=== PATIENT | female | born 1975 | race Caucasian/White ===

== ENCOUNTER 2018-11-26 10:26 | Emergency (ER) | payer OTHER ==
[2018-11-26] MEDS ORDERED: SODIUM CHLORIDE 0.9% 1,000 ML IV STA (10:40)
[2018-11-26] MEDS ORDERED: HYOSCYAMINE SL 0.125 MG TABLET SL STA (11:17)
--- NOTE | 2018-11-26 11:21 | ED Physician Documentation ---
History of Present Illness - Stated complaint Stated Complaint: ABD PX/DIARRHEA - Chief complaint Chief Complaint: Abd Pain - History obtained from History obtained from: Patient - History of Present Illness Timing: Yesterday Pain level max: 9 Pain level now: 7 - Additonal information Additional information: 43 year old female states nausea yesterday, no vomiting. Diarrhea, lower abd pain and BRBPR. Nothing makes it better or worse. No travel, no abx. family has had nausea. Review of Systems Constitutional: denies: Fever, Chills Cardiac: denies: Chest pain / pressure Respiratory: denies: Cough GI: reports: Nausea : denies: Now EGA Skin: denies: Rash PD PAST MEDICAL HISTORY - Past Medical History Past Medical History: No - Present Medications Home Medications: Ambulatory Orders Medication Instructions Recorded Confirmed DULoxetine [Cymbalta] mg PO DAILY 11/26/18 Hydrocodone/Acetaminophen 1 - 2 each PO Q6H PRN #10 tablet 11/26/18 [Hydrocodon-Acetaminophen 5-325] Hyoscyamine Sulfate [Levsin-Sl] 0.125 mg SL Q6H PRN #14 tab.subl 11/26/18 Ondansetron Odt [Zofran] 4 mg TL Q6H PRN #10 tablet 11/26/18 Pregabalin [Lyrica] mg PO 11/26/18 busPIRone [Buspar] mg PO BID 11/26/18 - Allergies Allergies/Adverse Reactions: Allergies Allergy/AdvReac Type Severity Reaction Status Date / Time latex Allergy Hives Verified 11/26/18 10:40 PD ED PE NORMAL - Vitals Vital signs reviewed: Yes - General General: Alert and oriented X 3, No acute distress, Well developed/nourished - HEENT HEENT: Moist mucous membranes - Neck Neck: Supple, no meningeal sign - Cardiac Cardiac: RRR, Strong equal pulses - Respiratory Respiratory: No respiratory distress, Clear bilaterally - Abdomen Abdomen: Soft, Non distended, Other (TTP suprapubic and LLQ. no peritoneal signs. ) - Back Back: No CVA TTP, No spinal TTP - Derm Derm: Warm and dry - Extremities Extremities: No edema - Neuro Neuro: Alert and oriented X 3 - Psych Psych: Normal mood, Normal affect Results - Vitals Vitals: Vital Signs - 24 hr 11/26/18 11/26/18 10:38 13:34 Temperature 36.7 C Heart Rate 71 59 L Respiratory 18 16 Rate Blood Pressure 110/74 116/71 O2 Saturation 99 100 Oxygen O2 Source Room air - Labs Labs: Laboratory Tests 11/26/18 11/26/18 11/26/18 11:35 11:35 12:30 WBC 11.4 H RBC 4.71 Hgb 14.6 Hct 45.0 MCV 95.5 MCH 31.0 MCHC 32.4 RDW 12.3 Plt Count 301 MPV 9.9 Neut # (Auto) 9.6 H Lymph # (Auto) 1.0 L Brown # (Auto) 0.7 Eos # (Auto) 0.1 Baso # (Auto) 0.0 Absolute Nucleated RBC 0.00 Nucleated RBC % 0.0 Sodium 137 Potassium 4.4 Chloride 102 Carbon Dioxide 27 Anion Gap 8.0 BUN 13 Creatinine 0.8 Estimated GFR (MDRD) 79 L Glucose 99 Calcium 8.9 Total Bilirubin 0.7 AST 20 ALT 17 Alkaline Phosphatase 73 Total Protein 7.1 Albumin 3.9 Globulin 3.2 Albumin/Globulin Ratio 1.2 Lipase 32 Urine Color YELLOW Urine Clarity CLEAR Urine pH 6.5 Ur Specific Coin <=1.005 Urine Protein NEGATIVE Urine Glucose (UA) NEGATIVE Urine Ketones NEGATIVE Urine Occult Blood NEGATIVE Urine Nitrite NEGATIVE Urine Bilirubin NEGATIVE Urine Urobilinogen 0.2 (NORMAL) Ur Leukocyte Esterase NEGATIVE Ur Microscopic Review NOT INDICATED Urine Culture Comments NOT INDICATED - Rads (name of study) CT abd/pelvis Radiology: Prelim report reviewed, EMP read contemporaneously, See rad report (1. Mild thickening and mucosal enhancement of the descending colon, sigmoid colon and rectum which can be seen with inflammatory/infectious colitis. Detail limited due to lack of distention. No significant pericolonic fluid collections. No bowel obstruction. 2. Appendix not visualized. No pericecal inflammatory changes. 3. Postsurgical changes involving the stomach. Status post cholecystectomy. 4. 2.2 cm posterior right hepatic lobe mass, indeterminate, although possibly a hemangioma. Confirmation recommended with dedicated MRI of the liver. 5. Left adnexal low-attenuation lesions possibly cysts. Nonemergent follow-up pelvic ultrasound recommended. ) PD MEDICAL DECISION MAKING - ED course Complexity details: reviewed results, re-evaluated patient, considered differential, d/w patient ED course: Patient is well-appearing, nontoxic. Afebrile. Reviewed all findings of CT scan and need for follow-up with patient. Tolerating p.o. without difficulty. No evidence of diverticulitis. Likely viral gastroenteritis complicated by bleeding. Hemoglobin is normal. Vitals are stable. We will follow-up closely with her doctor for further care. Patient counseled regarding signs and symptoms for which I believe and urgent re-evaluation would be necessary. Patient with good understanding of and agreement to plan and is comfortable going home at this time This document was made in part using voice recognition software. While efforts are made to proofread this document, sound alike and grammatical errors may occur. Departure - Departure Disposition: Home, Self Care Clinical Impression: Viral gastroenteritis Condition: Good Instructions: ED Gastroenteritis Viral Follow-Up: your,doctor in 1 week [Other] [facility] [Provider Group] [facility] [Provider Group] Prescriptions: Hydrocodone/Acetaminophen [Hydrocodon-Acetaminophen 5-325] 1 - 2 each PO Q6H PRN #10 tablet PRN Reason: pain Hyoscyamine Sulfate [Levsin-Sl] 0.125 mg SL Q6H PRN #14 tab.subl PRN Reason: Nausea / Vomiting Ondansetron Odt [Zofran] 4 mg TL Q6H PRN #10 tablet PRN Reason: Nausea / Vomiting Comments: Return if you worsen. Drink plenty of fluids and rest. This should improve over the next [address] scan: 1. Mild thickening and mucosal enhancement of the descending colon, sigmoid colon and rectum which can be seen with inflammatory/infectious colitis. Detail limited due to lack of distention. No significant pericolonic fluid collections. No bowel obstruction. 2. Appendix not visualized. No pericecal inflammatory mack nges. 3. Postsurgical changes involving the stomach. Status post cholecystectomy. 4. 2.2 cm posterior right hepatic lobe mass, indeterminate, although possibly a hemangioma. Confirmation recommended with dedicated MRI of the liver. 5. Left adnexal low-attenuation lesions possibly cysts. Nonemergent follow-up pelvic ultrasound recommended. Discharge Date/Time: 11/26/18 13:49
[2018-11-26] MEDS ORDERED: IOVERSOL 320 100 ML VIAL IVP ONE ×2 (11:33→13:06)
[2018-11-26 11:40] LABS: BASOPHILS % (AUTO) 0.3 %; EOSINOPHILS # (AUTO) 0.1 10^3/uL (0.0-0.7); EOSINOPHILS % (AUTO) 0.7 %; HGB - HEMOGLOBIN 14.6 g/dL (12.0-16.0); LYMPHOCYTES % (AUTO) 8.5 %; MEAN CORPUSCULAR HGB CONC 32.4 g/dL (32.0-36.0); MEAN CORPUSCULAR VOLUME 95.5 fL (81.0-99.0); MEAN PLATELET VOLUME 9.9 fL (7.9-10.8); MONOCYTES # (AUTO) 0.7 10^3/uL (0.0-1.0); MONOCYTES % (AUTO) 5.9 %; NEUTROPHILS # (AUTO) 9.6 10^3/uL (1.5-6.6); NEUTROPHILS % (AUTO) 84.3 %; PLT - PLATELET COUNT 301 10^3/uL (130-450); RED BLOOD COUNT 4.71 10^6/uL (4.20-5.40); RED CELL DISTRIBUTION WIDTH 12.3 % (12.0-15.0); WHITE BLOOD COUNT 11.4 x10^3/uL (4.8-10.8)
[2018-11-26 11:53] LABS: ALBUMIN 3.9 g/dL (3.2-5.5); ALBUMIN/GLOBULIN RATIO 1.2 (1.0-2.2); BILIRUBIN,TOTAL 0.7 mg/dL (0.2-1.0); CALCIUM 8.9 mg/dL (8.5-10.3); CREATININE 0.8 mg/dL (0.4-1.0); TOTAL PROTEIN 7.1 g/dL (6.7-8.2)
[2018-11-26 12:47] LABS: BILIRUBIN,URINE NEGATIVE (NEGATIVE); GLUCOSE, URINE (UA) NEGATIVE (NEGATIVE); KETONES,URINE (UA) NEGATIVE (NEGATIVE); LEUKOCYTE ESTERASE, URINE NEGATIVE (NEGATIVE); NITRITE,URINE NEGATIVE (NEGATIVE); OCCULT BLOOD,URINE NEGATIVE (NEGATIVE); PH,URINE 6.5 PH (5.0-7.5); PROTEIN,URINE NEGATIVE (NEGATIVE); UROBILINOGEN,URINE 0.2 (NORMAL) E.U./dL (NORMAL)
[2018-11-26 12:52] LABS: CLARITY,URINE CLEAR (CLEAR)
--- NOTE | 2018-11-26 13:21 | CT Report ---
Reason: LLQ abd pain, diarrhea, hematochezia Procedure Date: 11/26/2018 Accession Number: [id number] / [id number] Procedure: CT - Abdomen/Pelvis W CPT Code: FULL RESULT: EXAM: CT ABDOMEN AND PELVIS EXAM DATE: 11/26/2018 12:35 PM. CLINICAL HISTORY: Left lower quadrant abdominal pain, diarrhea, hematochezia. COMPARISONS: None. TECHNIQUE: Routine helical CT imaging was performed through the abdomen and pelvis. IV contrast: OPTI 320 100 mL. Enteric contrast: No. Reconstructions: Coronal and sagittal. In accordance with CT protocol optimization, one or more of the following dose reduction techniques were utilized for this exam: automated exposure control, adjustment of mA and/or KV based on patient size, or use of iterative reconstructive technique. FINDINGS: Lung Bases: Bibasilar scar/atelectasis. No pleural effusions. Included portions of the heart are unremarkable. Liver: Mild fatty liver. Within the right lobe of the liver posteriorly is a heterogeneous lesion measuring 2.2 x 1.8 cm, indeterminate, although there appears to be some peripheral enhancement which can be seen and may represent a hemangioma. Gallbladder/Bile Ducts: Status post cholecystectomy. No biliary ductal dilatation. Spleen: Normal. Pancreas: Normal. Adrenal Glands: Normal. Kidneys: Kidneys enhance symmetrically. Contrast excretion from both kidneys noted. No hydronephrosis. No perinephric edema. Peritoneal Cavity/Bowel: Postsurgical changes are seen involving the stomach. No small bowel obstruction or small bowel wall thickening. No free air. No diverticulitis. There is limited distention of portions of the colon. There appears to be mild thickening and mucosal enhancement of the distal descending and the sigmoid colon as well as the rectum. No extensive pericolonic inflammatory changes. No enlarged retroperitoneal or mesenteric lymph nodes. No free air. No free fluid. Appendix not distinctly visualized. Pelvic Organs: Urinary bladder contains contrast and is mildly distended. Within the left adnexa are low-attenuation lesions measuring 1.9 cm and 1.5 cm, possibly cysts. No pelvic free fluid. No pelvic adenopathy. Vasculature: No aneurysms or other significant abnormality. Bones: No osseous abnormalities. Mild degenerative changes of the lower thoracic spine. Lumbar facet arthropathy. No acute osseous abnormalities. Other: None. IMPRESSION: 1. Mild thickening and mucosal enhancement of the descending colon, sigmoid colon and rectum which can be seen with inflammatory/infectious colitis. Detail limited due to lack of distention. No significant pericolonic fluid collections. No bowel obstruction. 2. Appendix not visualized. No pericecal inflammatory changes. 3. Postsurgical changes involving the stomach. Status post cholecystectomy. 4. 2.2 cm posterior right hepatic lobe mass, indeterminate, although possibly a hemangioma. Confirmation recommended with dedicated MRI of the liver. 5. Left adnexal low-attenuation lesions possibly cysts. Nonemergent follow-up pelvic ultrasound recommended. RADIA
[2018-11-26] MEDS ORDERED: HYDROcod/ACETAM 5/325 MG TABLET PO STA (13:28)
[2018-11-26 13:35] VITALS: BP 116/71
== END 2018-11-26 13:49 | disposition home or self-care (01) ==
LOC: ED 10:26
DX: A08.4 Viral intestinal infection, unspecified (principal)
CPT/HCPCS: 36415; 74177; 80053; 81003; 83690; 85025; 96360; 99283; 99284; A9270; Q9967; 81001; 87086

== ENCOUNTER 2019-01-18 09:14 | Outpatient (CLI) | payer OTHER ==
[2019-01-18] MEDS ORDERED: GADOBUTROL 10 MMOL/10 ML VIAL ONE ×2 (11:24→12:28)
--- NOTE | 2019-01-21 17:03 | Ultrasound Report ---
Reason: OVARIAN CYST LEFT SIDE Procedure Date: 01/18/2019 Accession Number: [id number] / [id number] Procedure: US - Pelvic w/Transvaginal CPT Code: Final Report FULL RESULT: EXAM: PELVIC ULTRASOUND EXAM DATE: 01/18/2019 10:19 AM. CLINICAL HISTORY: OVARIAN CYST LEFT SIDE. 43-year-old female with LMP 01/11/2019. Right oophorectomy in 2003 related to torsion. Left pelvic pain for 1 month. COMPARISON: ABDOMEN/PELVIS W/ 11/26/2018 12:26 PM ABDOMEN W/WO 01/18/2019 12:02 PM. TECHNIQUE: Realtime transabdominal pelvic scan performed to identify the uterus and adnexa and as an overview of other pelvic structures, followed by transvaginal scan to provide greater detail of the uterus and adnexa, with static image documentation. FINDINGS: Uterus: 8.1 x 5.7 x 4.7 cm, volume 114 cc. Retroverted position. Normal overall size and echotexture. Masses: None. Endometrium: 15 mm. Normal. Cervix: Unremarkable. Right Ovary: Surgically absent. No adnexal mass is identified. Left Ovary: 2.6 x 2.1 x 4.9 cm, volume 14 cc. Normal blood flow. 2.0 x 1.5 x 1.9 cm and 2.0 x 1.6 x 1.3 cm dominant simple follicles. Free Fluid: None. Other: None. IMPRESSION: 1. There are 2 dominant simple follicles of the left ovary measuring 2 cm. No evidence of ovarian torsion or cyst rupture. 2. Right ovary surgically absent. 3. Uterus is unremarkable. RADIA
== END 2019-01-18 09:15 | disposition home or self-care (01) ==
LOC: DI 09:14
PROVIDERS: ATTEND Registered Nurse
DX: N83.292 Other ovarian cyst, left side (principal); Z90.721 Acquired absence of ovaries, unilateral
CPT/HCPCS: 76830; 76856

== ENCOUNTER 2019-01-18 09:16 | Outpatient (CLI) | payer OTHER ==
[2019-01-18] MEDS ORDERED: GADOBUTROL 10 MMOL/10 ML VIAL IVP ONE (13:20)
--- NOTE | 2019-01-21 10:01 | MRI Report ---
Reason: HEMANGIOMA HEPATIC Procedure Date: 01/18/2019 Accession Number: [id number] / [id number] Procedure: MRI - Abdomen W/WO CPT Code: Final Report FULL RESULT: EXAM: MR ABDOMEN WITH AND WITHOUT CONTRAST (MR PANCREAS AND MRCP) EXAM DATE: 01/18/2019 03:16 PM. CLINICAL HISTORY: HEMANGIOMA HEPATIC. COMPARISON: ABDOMEN/PELVIS W/ 11/26/2018 12:26 PM. TECHNIQUE: Multiplanar breath-hold T1, T2, and DWI sequences obtained through the pancreas and abdomen on an MR scanner. Dedicated 2D and 3D MRCP sequences obtained through the biliary and pancreatic ducts. Images obtained before and after administration of 10 cc Gadavist intravenous contrast. Multiphase postcontrast sequences obtained through the pancreas. FINDINGS: Lung Bases: Unremarkable. Liver: Normal in size, contour, and overall signal intensity without evidence of significant fatty infiltration. In segment 6, there is a 1.9 cm nodule which is circumscribed hypointense T1, hyperintense T2, with free water diffusion and peripheral nodular discontinuous enhancement with incomplete delayed phase syndrome contrast fill-in. No other focal lesions are identified. Gallbladder: Surgically absent. Bile Ducts: No intrahepatic or extrahepatic duct dilatation. No choledocholithiasis. Pancreas: The pancreas appears normal with no mass. The pancreatic duct measures mm in diameter and appears normal with no stone or stricture. Spleen: The spleen appears normal. Kidneys: The kidneys appear normal with no mass or hydronephrosis. Adrenals: The adrenals appear normal. Bowel: The visualized segments of the small bowel and colon appear normal with no inflammation or obstruction. Peritoneum: No ascites. Retroperitoneum: The retroperitoneal structures appear normal with no mass or lymphadenopathy. Vasculature: Unremarkable. Other: Bones and body wall are unremarkable. IMPRESSION: 1.9 cm cavernous hemangioma in hepatic segment 6. RADIA
== END 2019-01-18 09:17 | disposition home or self-care (01) ==
LOC: DI 09:16
PROVIDERS: ATTEND Registered Nurse
DX: D18.03 Hemangioma of intra-abdominal structures (principal); R53.83 Other fatigue; Z13.220 Encounter for screening for lipoid disorders; Z13.0 Encounter for screening for diseases of the blood and blood-forming organs and certain disorders involving the immune mechanism; N83.292 Other ovarian cyst, left side; Z90.721 Acquired absence of ovaries, unilateral
CPT/HCPCS: 36415; 74183; 76830; 76856; 80061; 83721; A9585; 80053; 84443; 85025

== ENCOUNTER 2019-01-18 10:16 | Outpatient (CLI) | payer OTHER ==
[2019-01-18 10:28] LABS: BASOPHILS % (AUTO) 0.6 %; EOSINOPHILS # (AUTO) 0.1 10^3/uL (0.0-0.7); EOSINOPHILS % (AUTO) 1.6 %; HGB - HEMOGLOBIN 14.4 g/dL (12.0-16.0); LYMPHOCYTES # (AUTO) 1.6 10^3/uL (1.5-3.5); LYMPHOCYTES % (AUTO) 25.1 %; MEAN CORPUSCULAR HEMOGLOBIN 30.6 pg (27.0-31.0); MEAN CORPUSCULAR HGB CONC 32.5 g/dL (32.0-36.0); MEAN CORPUSCULAR VOLUME 94.1 fL (81.0-99.0); MEAN PLATELET VOLUME 9.5 fL (7.9-10.8); MONOCYTES # (AUTO) 0.5 10^3/uL (0.0-1.0); NEUTROPHILS # (AUTO) 4.1 10^3/uL (1.5-6.6); NEUTROPHILS % (AUTO) 64.2 %; PLT - PLATELET COUNT 372 10^3/uL (130-450); RED BLOOD COUNT 4.71 10^6/uL (4.20-5.40); RED CELL DISTRIBUTION WIDTH 12.6 % (12.0-15.0); WHITE BLOOD COUNT 6.4 x10^3/uL (4.8-10.8)
[2019-01-18 10:56] LABS: ALBUMIN 3.9 g/dL (3.2-5.5); ALBUMIN/GLOBULIN RATIO 1.2 (1.0-2.2); ALKALINE PHOSPHATASE 81 IU/L (42-121); ALT ALANINE AMINOTRANSFERASE 21 IU/L (10-60); AST ASPARTATE AMINOTRANSFERASE 23 IU/L (10-42); BILIRUBIN,TOTAL 0.8 mg/dL (0.2-1.0); BUN - BLOOD UREA NITROGEN 14 mg/dL (6-20); CALCIUM 9.1 mg/dL (8.5-10.3); CARBON DIOXIDE - CO2 29 mmol/L (21-32); CHLORIDE 101 mmol/L (101-111); CHOL/HDL RATIO 6.1 (<4.4); CHOLESTEROL 281 mg/dL; CREATININE 0.7 mg/dL (0.4-1.0); GFR - MDRD 92 (>89); GLUCOSE 96 mg/dL (70-100); HDL CHOLESTEROL 46 mg/dL; SODIUM 138 mmol/L (135-145); TOTAL PROTEIN 7.1 g/dL (6.7-8.2)
[2019-01-18 11:30] LABS: LDL CHOLESTEROL,DIRECT 115 mg/dL; LDLD/HDL RATIO 2.5 (<4.4)
== END 2019-01-18 10:17 | disposition home or self-care (01) ==
LOC: LAB 10:16
PROVIDERS: ATTEND Registered Nurse
DX: R53.83 Other fatigue (principal); Z13.220 Encounter for screening for lipoid disorders; Z13.0 Encounter for screening for diseases of the blood and blood-forming organs and certain disorders involving the immune mechanism
CPT/HCPCS: 36415; 80053; 80061; 83721; 84443; 85025

== ENCOUNTER 2019-01-21 09:50 | Outpatient (CLI) | payer OTHER ==
--- NOTE | 2019-01-28 08:29 | Mammography Report ---
Reason: ANNUAL SCREENING Procedure Date: 01/21/2019 Accession Number: [id number] / [id number] Procedure: SARAI - Screening Mammo Dig Bilat CPT Code: Final Report FULL RESULT: EXAM: Screening Mammo Dig Bilat DATE: 01/21/2019 10:28 AM CLINICAL HISTORY: Screening encounter. TECHNIQUE: (B) - Bilateral CC and MLO views were obtained. COMPARISON: 10/22/2017 through 01/30/2014. PARENCHYMAL PATTERN: (A) - The breast(s) demonstrate(s) scattered fibroglandular densities. FINDINGS: There are no suspicious masses, calcifications, or areas of distortion. IMPRESSION: Negative examination. BI-RADS category 1. RECOMMENDATION: (ANNUAL) - Recommend routine annual screening mammography. BI-RADS CATEGORY: (1) - Negative. STANDARD QUALIFYING STATEMENTS: 1. This examination was not reviewed with the aid of Computer-Aided Detection (CAD). 2. A negative or benign imaging report should not preclude biopsy if clinically suspicious findings are present. 3. Dense breasts may obscure an underlying neoplasm. 4. This examination was reviewed without the aid of 3D breast imaging (tomosynthesis).
== END 2019-01-21 09:51 | disposition home or self-care (01) ==
LOC: DI 09:50
PROVIDERS: ATTEND Registered Nurse
DX: Z12.31 Encounter for screening mammogram for malignant neoplasm of breast (principal); Z80.3 Family history of malignant neoplasm of breast
CPT/HCPCS: 77067

== ENCOUNTER 2019-03-07 10:16 | Outpatient (CLI) | payer OTHER ==
--- NOTE | 2019-03-07 13:23 | SLEEP CARE CONSULTATION ---
Information from patient questionnaire entered by Krystal Ayon. I have reviewed and concur with the information entered by Krystal Ayon. This document represents the service I personally performed and the decisions made by me, Mi Galindo MD, [facility]. History of Present Illness Reason for Visit: New patient Chief Complaint: reports: Unrefreshed sleep, Excessive daytime sleepiness, Fatigue, Frequent awakenings at night Duration of Symptoms: 3 years Usual bedtime: 10-10:30 PM Time it takes to fall asleep: 10-30 mins Snores at night: No (unsure) Observed to quit breathing while asleep: No Sleeps alone due to snoring: No Number of times waking at night: 5 or more Reasons for waking at night: reports: Other (I dont know) Toss, Turn, or Twitch while sleeping: Yes Recalls having dreams: Yes (every night) Usually gets out of bed at: 5:30 am Feels refreshed in the morning: No Morning headache: Yes (sometimes) Sleepy or fatigued during the day: Yes (all day) Ever fallen asleep while driving: No Takes day naps: Yes Dreams during day naps: Yes Prior sleep studies: Yes Year and Where: [facility] Additional HPI information: I had the pleasure of seeing Ms. Heath today regarding the possibility of her having a sleep disorder. As you know, she is a 43 year old lady who complains of frequent awakenings, unrefreshed sleep, persistent fatigue, and excessive daytime sleepiness. She had a sleep study at [facility] in 2016. She recalls being told that she stopped breathing 8 times an hour. She stopped using her ResMed AirSense 10 CPAP over a year ago because of nasal congestion and waking up from the machines noise. She wore a Respironics Wisp nasal mask. She also lost 50 lbs but later gained 30 lbs. At first she noticed improvement on the treatment. Her durable medical supplier is [facility]. The patient tells me that she normally goes to bed around 10 10:30 pm, and it takes her approximately 10 30 minutes to fall asleep. She snores but does not know how loud. She has not been observed to stop breathing in her sleep. Her spouse can still sleep in the same bed. She can recall waking up on the average of 5+ times during the night. Most of the time she wakes up because of unknown reasons. She has awakened occasionally because of her own snoring, but not choking, or having to gasp for air. There is not a lot of tossing and turning in her sleep. She has somniloquy (sleep talking) but not somnambulism (sleep walking). Generally she can recall having dreams. In the morning she usually gets up out of the bed around 5:30 a.m. not feeling refreshed nor rested. She occasionally has a morning headache. During the day she complains of feeling sleepy and fatigued. Her score on [place] Sleepiness Scale is 11 out of 24. 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 Patient is and lives in [place]. Have you smoked in the past 12 months: No Alcohol use: No Caffeine use: Yes Caffeine amount and frequency: 2 cups in the a.m. Family History Family history of sleep disordered breathing: Yes Allergies and Home Medications Drug allergies reviewed: Yes Home medication list reviewed: Yes Allergy and home medication list: Meds: Lyrica, Cymbalta, propanolol, buspirone, omeprazole, Zyrtec, calcium, and Multivitamin once a day Allergies: no known drug allergies Review of Systems Weight gain over past 5 years: 30 Weight loss over past 5 years: 50 Cardiovascular: reports: palpitations (POTS), irregular heart rate or pulse (POTS) Respiratory: denies: shortness of breath, wheeze, sputum production, chronic cough, other Gastrointestinal: reports: difficulty swallowing, abdominal pain Urinary: reports: incontinence (drips) Neurological: reports: headaches, gait or balance problems (POTS), fainting or unconsciousness (POTS) Psychiatric: reports: anxiety Ear/Nose/Throat: reports: nasal congestion, injury to nose, wisdom teeth removed Endocrine: reports: sluggishness, too hot or cold Musculoskeletal: reports: joint pain, neck pain, back pain, muscle pain or cramping Immunologic: reports: sneezing, itching, allergies to food or environment (environment) Physical Exam Vital signs obtained and entered by: Dr. Galindo Blood Pressure: 128/90 Cuff size: regular Heart Rate: 84 O2 Saturation: 98 Height: 5 ft 8 in Weight: 237 lb Body Mass Index: 36.0 BMI Classification: Obesity Class 2 Neck circumference: 15 HEENT: No craniofacial malformation Nostrils: patent to airflow Turbinates: normal Septum: midline Mouth and throat: narrow oropharynx Soft palate: long Hard palate: normal Uvula: normal Uvula visualization: 25% Mallampati Class III Tongue: enlarged in size with teeth yanez on lateral edges Tonsils: small Chin and jaw: normal size and position Neck: normal w/o lymphadenopathy or thyromegaly Heart: regular rate and rhythm Lungs: clear bilaterally Abdomen: soft, non-tender Extremities: no edema or clubbing Neurologic: intact, no focal deficits Impression and Plan IMPRESSION: 1. Obstructive Sleep Apnea-Hypopnea Syndrome, as previously diagnosed. The severity is unknown as we do not have any of the records. The patient lost a lot of weight and is presently not using her CPAP. She appears to still have some symptoms of the sleep-disordered breathingsnore, frequent awakenings, unrefreshed sleep, and excessive daytime sleepiness. Narrow oropharynx and obesity are common predisposing factors for obstructive sleep apnea-hypopnea syndrome. Pathophysiology of sleep-disordered breathing was discussed. I recommend proceeding to repeating the in-laboratory polysomnography to confirm the diagnosis and to reassess severity. I informed the patient of what the sleep studies involve and after some discussion, she agreed to proceed. Plan: 1. Schedule an in-laboratory polysomnography. 2. Avoid long distance driving or when feeling sleepy. 3. Avoid alcohol, sedative and muscle relaxant around bedtime. 4. Attempt to lose weight. 5. Return in 1 to 2 weeks after the study to discuss results and initiate therapy I spent 100% of this 20 minute visit face to face with the patient with greater than 50% of this was spent time counseling the patient and coordination of care.
[2019-03-07 13:24] VITALS: BP 128/90
== END 2019-03-07 10:17 | disposition home or self-care (01) ==
LOC: SC 10:16
PROVIDERS: ATTEND Internal Medicine Pulmonary Disease
DX: G47.33 Obstructive sleep apnea (adult) (pediatric) (principal); E66.9 Obesity, unspecified; Z68.36 Body mass index [BMI] 36.0-36.9, adult
CPT/HCPCS: 99203; 99212

== ENCOUNTER 2019-05-03 20:13 | Outpatient (CLI) | payer OTHER | END 2019-05-03 20:14 | disposition home or self-care (01) | LOC: SC 20:13 | PROVIDERS: ATTEND Internal Medicine Pulmonary Disease | DX: G47.33 Obstructive sleep apnea (adult) (pediatric) (principal) | CPT/HCPCS: 95810 ==

== ENCOUNTER 2019-05-24 11:40 | Outpatient (CLI) | payer OTHER ==
--- NOTE | 2019-05-24 12:21 | SLEEP CARE CONSULTATION ---
Information from patient questionnaire entered by Krystal Ayon. I have reviewed and concur with the information entered by Krystal Ayon. This document represents the service I personally performed and the decisions made by me, Mi Galindo MD, [facility]. History of Present Illness Initial [place] Sleepiness Scale score: 11 Current [place] Sleepiness Scale score: 5 Additional HPI information: HPI: returned for follow up of the sleep study she had on 05/03/2019. The polysomnography showed that he patient had normal sleep efficiency. The sleep architecture was abnormal for sleep fragmentation and reduced amount of time spent in REM and slow wave sleep (N3). Respiratory monitoring showed no significant sleep disordered breathing obstructive sleep apnea-hypopnea (AHI = 3.5) or hypoxia (val oxygen saturation of 89%). The few respiratory events occurred almost exclusively during supine sleep (supine AHI = 6.2; non-supine = 3.04). Snore was light in intensity. There was no significant periodic leg movement of sleep. Cardiac rhythm was normal sinus rhythm without significant arrhythmia. No abnormal behavior (parasomnia) observed during the night. The patient was informed of these findings. I explained to her that she no longer has significant sleep disordered breathing. The patient is presently not using her CPAP. Allergies and Home Medications Drug allergies reviewed: Yes Home medication list reviewed: Yes Review of Systems Review of systems same as previous: Yes Physical Exam Height: 5 ft 8 in Weight: 235 lb Body Mass Index: 35.7 BMI Classification: Obese Impression and Plan IMPRESSION: 1. Obstructive Sleep Apnea-Hypopnea Syndrome, resolved with weight loss. The patient was advised to not sleep on her back. I suggest that she sew tennis balls to the back of her Tribe to prevent lying on her back at night. PLAN: 1. Avoid weight regain. 2. Avoid sleeping supine 3. Return for follow up on as needed basis. I spent 100% of this visit face to face with the patient with greater than 50% of this was spent time counseling the patient and coordination of care.
== END 2019-05-24 11:41 | disposition home or self-care (01) ==
LOC: SC 11:40
PROVIDERS: ATTEND Internal Medicine Pulmonary Disease
DX: G47.33 Obstructive sleep apnea (adult) (pediatric) (principal); E66.9 Obesity, unspecified; Z68.35 Body mass index [BMI] 35.0-35.9, adult
CPT/HCPCS: 99212; 99213

== ENCOUNTER 2019-05-26 08:00 | Outpatient (CLI) | payer OTHER | END 2019-05-26 23:59 | disposition home or self-care (01) | LOC: LAB.R 08:00 | PROVIDERS: ATTEND Registered Nurse | DX: B34.9 Viral infection, unspecified (principal) | CPT/HCPCS: 87070 ==

== ENCOUNTER 2019-05-27 09:36 | Outpatient (CLI) | payer OTHER ==
[2019-05-27 10:14] LABS: BASOPHILS % (AUTO) 0.4 %; EOSINOPHILS # (AUTO) 0.1 10^3/uL (0.0-0.7); EOSINOPHILS % (AUTO) 1.5 %; HGB - HEMOGLOBIN 14.5 g/dL (12.0-16.0); LYMPHOCYTES # (AUTO) 1.5 10^3/uL (1.5-3.5); LYMPHOCYTES % (AUTO) 20.9 %; MEAN CORPUSCULAR HEMOGLOBIN 31.2 pg (27.0-31.0); MEAN CORPUSCULAR HGB CONC 33.2 g/dL (32.0-36.0); MEAN PLATELET VOLUME 9.6 fL (7.9-10.8); MONOCYTES # (AUTO) 0.5 10^3/uL (0.0-1.0); MONOCYTES % (AUTO) 7.5 %; NEUTROPHILS % (AUTO) 69.1 %; PLT - PLATELET COUNT 370 10^3/uL (130-450); RED BLOOD COUNT 4.65 10^6/uL (4.20-5.40); RED CELL DISTRIBUTION WIDTH 12.8 % (12.0-15.0); WHITE BLOOD COUNT 7.2 x10^3/uL (4.8-10.8)
[2019-05-27 10:23] LABS: CALCIUM 9.4 mg/dL (8.5-10.3); CREATININE 0.8 mg/dL (0.4-1.0)
--- NOTE | 2019-05-27 12:35 | XRAY Report ---
Reason: VIRAL ILLNESS,ACUTE Procedure Date: 05/27/2019 Accession Number: [id number] / [id number] Procedure: XR - Chest 2 View X-Ray CPT Code: 35769 Final Report FULL RESULT: EXAM: CHEST RADIOGRAPHY 2 VIEWS EXAM DATE: 05/27/2019. CLINICAL HISTORY: Acute viral illness. Cough and chest pain for 10 days. COMPARISON: None. TECHNIQUE: PA and lateral views. FINDINGS: Lungs/Pleura: Normal vasculature. The lungs are clear. No pleural fluid or pneumothorax. Mediastinum: Normal cardiac and mediastinal contours. Bones: Minimal scoliosis. Other: Right upper abdomen cholecystectomy clips. IMPRESSION: No radiographic cardiopulmonary abnormality. RADIA
== END 2019-05-27 09:37 | disposition home or self-care (01) ==
LOC: DI 09:36
PROVIDERS: ATTEND Registered Nurse
DX: B34.9 Viral infection, unspecified (principal)
CPT/HCPCS: 36415; 71046; 80048; 85025

== ENCOUNTER 2019-06-03 10:35 | Outpatient (CLI) | payer OTHER | END 2019-06-03 23:59 | disposition home or self-care (01) | LOC: LAB.R 10:35 | PROVIDERS: ATTEND Registered Nurse | DX: B34.9 Viral infection, unspecified (principal) | CPT/HCPCS: 81599 ==

== ENCOUNTER 2020-04-20 15:19 | Outpatient (CLI) | payer OTHER ==
--- NOTE | 2020-04-20 16:46 | XRAY Report ---
PROCEDURE: Knee 3 View RT INDICATIONS: RIGHT KNEE PAIN, ACUTE TECHNIQUE: 3 views of the right knee(s) were acquired. COMPARISON: None. FINDINGS: Bones: No fractures or dislocations. No suspicious bony lesions. Soft tissues: Mild joint effusion. No suspicious soft tissue calcifications. IMPRESSION: Mild effusion. No visualized acute fracture or dislocation. However, occult injury canno t be excluded. Recommend short interval imaging follow-up in 7-10 days as clinically indicated for ad ditional evaluation. Reviewed by: Ashley Varela MD on 04/20/2020 4:45 PM PST Approved by: Ashley Varela MD on 04/20/2020 4:45 PM PST Station ID: [id number]
== END 2020-04-20 23:59 | disposition home or self-care (01) ==
LOC: DI.S 15:19
PROVIDERS: ATTEND Emergency Medicine
DX: M25.461 Effusion, right knee (principal)

== ENCOUNTER 2020-04-27 11:08 | Outpatient (CLI) | payer OTHER ==
--- NOTE | 2020-04-27 11:38 | XRAY Report ---
PROCEDURE: Knee 3 View RT INDICATIONS: KNEE PAIN, RIGHT, ACUTE TECHNIQUE: 3 views of the right knee(s) were acquired. COMPARISON: None. FINDINGS: No fracture. Scattered subchondral sclerosis and spurring. No definite joint space narrowing. Soft tissues: Small joint effusion. No suspicious soft tissue calcifications. IMPRESSION: Small joint effusion. No fracture. If the patient's pain or other symptoms persist, consider further evaluation with MRI. Reviewed by: Javier Ford MD on 04/27/2020 11:37 AM [facility] Approved by: Javier Ford MD on 04/27/2020 11:37 AM PST Station ID: [id number]
== END 2020-04-27 23:59 | disposition home or self-care (01) ==
LOC: DI.N 11:08
PROVIDERS: ATTEND Physician Assistant
DX: M25.461 Effusion, right knee (principal)

== ENCOUNTER 2020-05-25 13:25 | Outpatient (CLI) | payer OTHER ==
--- NOTE | 2020-05-25 16:19 | MRI Report ---
PROCEDURE: Knee RT W/O INDICATIONS: CHONDROMALACIA OF R KNEE TECHNIQUE: Noncontrast sagittal PD fast spin echo and T2 fast spin echo with fat saturation, sagittal 3-D gradie nt sequence with fat saturation; coronal T1 spin echo and PD fast spin echo with fat saturation, and axial PD fast spin echo with fat saturation through the knee. COMPARISON: None. FINDINGS: Image quality: Excellent. Menisci: Medial meniscus intact. Lateral meniscus intact. Cruciate ligaments: Anterior cruciate ligament appears intact. Posterior cruciate ligament appears intact. Medial structures: The medial collateral ligament appears intact. The semimembranosus tendon appears intact. Visualized portions of the pes anserinus tendons appear normal. No abnormal bursal fluid. Lateral structures: Lateral collateral ligament appears grossly intact. Biceps femoris tendon appears intact. Iliotibial band within normal limits. Popliteus tendon within normal limits. Anterior structures: Mild patellar tendinopathy, with prepatellar and superficial infrapatellar edema. The quadriceps tendon appears intact. Medial and lateral patellofemoral ligaments appear grossly intact. Patellar alignment is normal. Hoffa's fat pad unremarkable. Bones and cartilage: No bone marrow contusions or fractures. Within the medial compartment, no focal cartilage defect. Within the lateral compartment, no focal cartilage defect. Within the patellofemoral compartment, mild surface fraying of the cartilage overlying the lateral pa tellar facet and lateral femoral trochlea. Joint space: No joint effusion. Small Montanez?s cyst which measures 2 cm in the cephalocaudad dimension. This may be partially ruptured although technically indeterminate due to small size. No specific evidence of loose body identified. IMPRESSION: Mild patellar tendinopathy with adjacent edema/fluid. Patellofemoral chondromalacia Small Montanez's cyst Reviewed by: Javier Ford MD on 05/25/2020 4:18 PM PST Approved by: Javier Ford MD on 05/25/2020 4:18 PM PST Station ID: [id number]
== END 2020-05-25 13:26 | disposition home or self-care (01) ==
LOC: DI 13:25
PROVIDERS: ATTEND Physician Assistant
DX: M94.261 Chondromalacia, right knee (principal); M71.21 Synovial cyst of popliteal space [Baker], right knee

== ENCOUNTER 2020-09-26 15:06 | Outpatient (CLI) | payer OTHER | END 2020-09-26 15:07 | disposition home or self-care (01) | LOC: COV 15:06 | PROVIDERS: ATTEND Nurse Practitioner | DX: Z01.812 Encounter for preprocedural laboratory examination (principal); Z86.010 Personal history of colon polyps; Z20.822 Contact with and (suspected) exposure to COVID-19 ==

== ENCOUNTER 2020-10-14 15:28 | Outpatient (CLI) | payer OTHER ==
--- NOTE | 2020-10-15 14:21 | Mammography Report ---
BILATERAL DIGITAL SCREENING MAMMOGRAM 3D/2D: 10/14/2020 CLINICAL: Family history of breast cancer. Comparison is made to exam dated: 01/21/2019 mammogram - [facility]. The tissue of both breasts is heterogeneously dense. This may lower the sensitivity of mammography. No significant masses, calcifications, or other findings are seen in either breast. There has been no significant interval change. IMPRESSION: NEGATIVE There is no mammographic evidence of malignancy. A 1 year screening mammogram is recommended. This exam was interpreted at Station ID: [id number]. NOTE: For mammograms, a report in lay terms will be sent to the patient. Approximately 15% of breast malignancies will not be visualized mammographically. In the management of a palpable breast mass, a negative mammogram must not discourage biopsy of a clinically suspicious lesion. Electronically Signed By: Prosper santos/any:10/15/2020 09:59:26 ACR BI-RADS Category 1: Negative 3341F PARENCHYMAL PATTERN: (D) - The breast(s) demonstrate(s) heterogeneously dense fibroglandular abby hale. BI-RADS CATEGORY: (1) - 1 RECOMMENDATION: (ANNUAL) - Recommend routine annual screening mammography. [id number] 1 year screening LATERALITY: (B)
== END 2020-10-14 15:29 | disposition home or self-care (01) ==
LOC: DI.S 15:28
DX: Z12.31 Encounter for screening mammogram for malignant neoplasm of breast (principal); Z80.3 Family history of malignant neoplasm of breast

== ENCOUNTER 2021-02-06 07:11 | Outpatient (CLI) | payer BC ==
--- NOTE | 2021-02-06 10:22 | Ultrasound Report ---
PROCEDURE: Pelvic w/Transvaginal INDICATIONS: HISTORY OF OVARIAN CYST, PELVIC PAIN TECHNIQUE: Real-time scanning was performed of the pelvic organs, with image documentation. Additional endovagi nal scanning was necessary due to incomplete visualization of the adnexal and endometrial structures by transabdominal scanning. COMPARISON: 01/18/2019 FINDINGS: No pathologic free abdominal or pelvic fluid. Uterus: Uterus is retroverted and normal in size at 7.8 x 4.9 x 5.1 cm. The echotexture is slightly heterogeneous but without dominant mass. The endometrium measures 6.3 mm in combined thickness. The contour of the endometrial stripe is slightly irregular. Ovaries: The right ovary is surgically absent. The left ovary measures 4.0 x 2.0 x 1.7 cm for a volu me of 7.1 cc. There are 2 thin-walled simple cysts on the left ovary measuring 2.2 and 1.2 cm. IMPRESSION: 1. Slightly heterogeneous myometrial echotexture and irregular endometrial contour raising possibilit y of adenomyosis. This is more prominent compared to the prior study. 2. Post right oophorectomy. 3. 2 dominant follicles on the left ovary. Reviewed by: Shasta Polanco MD on 02/06/2021 10:21 AM PST Approved by: Shasta Polanco MD on 02/06/2021 10:21 AM PST Station ID: [id number]
== END 2021-02-06 07:12 | disposition home or self-care (01) ==
LOC: DI 07:11
PROVIDERS: ATTEND Nurse Practitioner
DX: N83.02 Follicular cyst of left ovary (principal); R10.2 Pelvic and perineal pain

== ENCOUNTER 2021-02-06 07:57 | Outpatient (CLI) | payer BC ==
[2021-02-06 08:50] LABS: BASOPHILS % (AUTO) 0.5 %; EOSINOPHILS # (AUTO) 0.1 10^3/uL (0.0-0.7); EOSINOPHILS % (AUTO) 1.9 %; HCT - HEMATOCRIT 42.2 % (37.0-47.0); HGB - HEMOGLOBIN 14.2 g/dL (12.0-16.0); LYMPHOCYTES # (AUTO) 1.6 10^3/uL (1.5-3.5); LYMPHOCYTES % (AUTO) 28.3 %; MEAN CORPUSCULAR HEMOGLOBIN 32.1 pg (27.0-31.0); MEAN CORPUSCULAR HGB CONC 33.6 g/dL (32.0-36.0); MEAN CORPUSCULAR VOLUME 95.5 fL (81.0-99.0); MEAN PLATELET VOLUME 9.6 fL (7.9-10.8); MONOCYTES # (AUTO) 0.5 10^3/uL (0.0-1.0); MONOCYTES % (AUTO) 8.5 %; NEUTROPHILS # (AUTO) 3.5 10^3/uL (1.5-6.6); NEUTROPHILS % (AUTO) 60.6 %; PLT - PLATELET COUNT 298 10^3/uL (130-450); RED BLOOD COUNT 4.42 10^6/uL (4.20-5.40); RED CELL DISTRIBUTION WIDTH 11.8 % (12.0-15.0); WHITE BLOOD COUNT 5.8 x10^3/uL (4.8-10.8)
[2021-02-06 09:04] LABS: ALBUMIN 4.2 g/dL (3.2-5.5); ALBUMIN/GLOBULIN RATIO 1.6 (1.0-2.2); ALKALINE PHOSPHATASE 59 IU/L (42-121); ALT ALANINE AMINOTRANSFERASE 20 IU/L (10-60); AST ASPARTATE AMINOTRANSFERASE 22 IU/L (10-42); BILIRUBIN,TOTAL 0.6 mg/dL (0.2-1.0); BUN - BLOOD UREA NITROGEN 14 mg/dL (6-20); CALCIUM 8.9 mg/dL (8.5-10.3); CARBON DIOXIDE - CO2 23 mmol/L (21-32); CHLORIDE 102 mmol/L (101-111); CHOL/HDL RATIO 6.5 (<4.4); CHOLESTEROL 281 mg/dL; CREATININE 0.7 mg/dL (0.4-1.0); GFR - MDRD 91 (>89); GLUCOSE 91 mg/dL (70-100); HDL CHOLESTEROL 43 mg/dL; LDL CHOLESTEROL,CALCULATED 164 mg/dL; LDL/HDL RATIO 3.8 (<4.4); POTASSIUM 3.8 mmol/L (3.5-5.0); SODIUM 135 mmol/L (135-145); TOTAL PROTEIN 6.9 g/dL (6.7-8.2); TRIGLYCERIDES 368 mg/dL; VLDL CHOLESTEROL 74 mg/dL
== END 2021-02-06 07:58 | disposition home or self-care (01) ==
LOC: LAB 07:57
PROVIDERS: ATTEND Registered Nurse
DX: N95.9 Unspecified menopausal and perimenopausal disorder (principal); N91.2 Amenorrhea, unspecified; Z51.81 Encounter for therapeutic drug level monitoring; N64.52 Nipple discharge; Z13.220 Encounter for screening for lipoid disorders; F41.9 Anxiety disorder, unspecified; Z79.899 Other long term (current) drug therapy
CPT/HCPCS: 36415; 80053; 80061; 83721; 84146; 85025

== ENCOUNTER 2021-06-19 10:24 | Outpatient (CLI) | payer BC, OTHER ==
--- NOTE | 2021-06-19 14:30 | XRAY Report ---
PROCEDURE: Chest 2 View X-Ray INDICATIONS: ATYPICAL CHEST PAIN TECHNIQUE: 2 view(s) of the chest. COMPARISON: None. FINDINGS: Surgical changes and devices: None. Lungs and pleura: No pleural effusions or pneumothorax. Lungs are clear. Mediastinum: Mediastinal contours are normal. Heart size is normal. Bones and chest wall: No suspicious bony abnormalities. Soft tissues appear unremarkable. IMPRESSION: Normal two-view chest x-ray Reviewed by: Wilfredo Whitfield MD on 06/19/2021 1:29 PM [facility] Approved by: Wilfredo Whitfield MD on 06/19/2021 1:29 PM [facility] Station ID: [id number]
[2021-06-19 15:12] LABS: BASOPHILS % (AUTO) 0.8 %; EOSINOPHILS # (AUTO) 0.1 10^3/uL (0.0-0.7); HCT - HEMATOCRIT 42.9 % (37.0-47.0); HGB - HEMOGLOBIN 14.2 g/dL (12.0-16.0); LYMPHOCYTES # (AUTO) 1.5 10^3/uL (1.5-3.5); LYMPHOCYTES % (AUTO) 29.7 %; MEAN CORPUSCULAR HEMOGLOBIN 31.4 pg (27.0-31.0); MEAN CORPUSCULAR HGB CONC 33.1 g/dL (32.0-36.0); MEAN CORPUSCULAR VOLUME 94.9 fL (81.0-99.0); MEAN PLATELET VOLUME 11.1 fL (7.9-10.8); MONOCYTES # (AUTO) 0.4 10^3/uL (0.0-1.0); MONOCYTES % (AUTO) 7.9 %; NEUTROPHILS % (AUTO) 59.4 %; PLT - PLATELET COUNT 284 10^3/uL (130-450); RED BLOOD COUNT 4.52 10^6/uL (4.20-5.40); RED CELL DISTRIBUTION WIDTH 12.5 % (12.0-15.0); WHITE BLOOD COUNT 5.1 x10^3/uL (4.8-10.8)
[2021-06-19 15:30] LABS: ALBUMIN 4.1 g/dL (3.2-5.5); ALBUMIN/GLOBULIN RATIO 1.6 (1.0-2.2); ALKALINE PHOSPHATASE 64 IU/L (42-121); ALT ALANINE AMINOTRANSFERASE 54 IU/L (10-60); AST ASPARTATE AMINOTRANSFERASE 38 IU/L (10-42); BILIRUBIN,TOTAL 0.7 mg/dL (0.2-1.0); BUN - BLOOD UREA NITROGEN 13 mg/dL (6-20); CARBON DIOXIDE - CO2 31 mmol/L (21-32); CHLORIDE 102 mmol/L (101-111); CREATININE 0.9 mg/dL (0.4-1.0); GFR - MDRD 68 (>89); GLUCOSE 99 mg/dL (70-100); LIPASE 31 U/L (22-51); POTASSIUM 4.5 mmol/L (3.5-5.0); SODIUM 140 mmol/L (135-145); TOTAL PROTEIN 6.7 g/dL (6.7-8.2)
[2021-06-19 15:39] LABS: CRP - C-REACTIVE PROTEIN < 1.0 mg/dL (0-1.0)
== END 2021-06-19 23:59 | disposition home or self-care (01) ==
LOC: DI.S 10:24
PROVIDERS: ATTEND Registered Nurse
DX: R07.89 Other chest pain (principal)
CPT/HCPCS: 36415; 80053; 83690; 85025; 85651; 86140

== ENCOUNTER 2021-06-19 18:01 | Emergency (ER) | payer BC, OTHER ==
--- NOTE | 2021-06-19 18:34 | XRAY Report ---
PROCEDURE: Chest 1 View X-Ray INDICATIONS: Chest pain TECHNIQUE: One view of the chest was acquired. COMPARISON: Chest x-ray 2 views, 05/27/2019. FINDINGS: Surgical changes and devices: None. Lungs and pleura: No pleural effusions or pneumothorax. Lungs are clear. Mediastinum: Mediastinal contours appear normal. Heart size is normal. Bones and chest wall: No suspicious bony lesions. Overlying soft tissues appear unremarkable. IMPRESSION: No acute cardiopulmonary disease. Reviewed by: Reyna Vega MD on 06/19/2021 6:32 PM PDT Approved by: Reyna Vega MD on 06/19/2021 6:32 PM PDT Station ID: [id number]
[2021-06-19 18:36] LABS: BASOPHILS % (AUTO) 0.8 %; EOSINOPHILS # (AUTO) 0.1 10^3/uL (0.0-0.7); EOSINOPHILS % (AUTO) 1.9 %; HCT - HEMATOCRIT 42.7 % (37.0-47.0); HGB - HEMOGLOBIN 14.5 g/dL (12.0-16.0); LYMPHOCYTES # (AUTO) 1.8 10^3/uL (1.5-3.5); LYMPHOCYTES % (AUTO) 35.4 %; MEAN CORPUSCULAR HEMOGLOBIN 31.5 pg (27.0-31.0); MEAN CORPUSCULAR VOLUME 92.6 fL (81.0-99.0); MONOCYTES # (AUTO) 0.6 10^3/uL (0.0-1.0); MONOCYTES % (AUTO) 10.6 %; NEUTROPHILS # (AUTO) 2.7 10^3/uL (1.5-6.6); NEUTROPHILS % (AUTO) 51.3 %; PLT - PLATELET COUNT 311 10^3/uL (130-450); RED BLOOD COUNT 4.61 10^6/uL (4.20-5.40); RED CELL DISTRIBUTION WIDTH 12.4 % (12.0-15.0); WHITE BLOOD COUNT 5.2 x10^3/uL (4.8-10.8)
[2021-06-19 18:49] LABS: ALBUMIN 4.2 g/dL (3.2-5.5); ALBUMIN/GLOBULIN RATIO 1.5 (1.0-2.2); BILIRUBIN,TOTAL 0.5 mg/dL (0.2-1.0); CALCIUM 9.3 mg/dL (8.5-10.3); CREATININE 0.8 mg/dL (0.4-1.0); POTASSIUM 3.9 mmol/L (3.5-5.0)
--- NOTE | 2021-06-19 19:09 | ED Physician Documentation ---
PD HPI CHEST PAIN - Stated complaint Stated Complaint: RIGHT SIDE CP - Chief complaint Chief Complaint: Cardiac - History obtained from History obtained from: Patient - History of Present Illness Timing - onset: Enter time (03:00), Today Timing - onset during: Sleep Timing - details: Abrupt onset, Constant, Waxing and waning Pain level now: 6 Quality: Pain Location: Right chest Radiation: Other (radiates towards right paralumbar but she says it doesn't feel like it radiates all the way to the back) Improved by: Rest Worsened by: Exertion, Movement Associated symptoms: No: Shortness of air, Diaphoresis, Nausea, Vomiting, Feeling faint / dizzy, General Weakness, Palpitations, Cough Similar symptoms before: Has not had sx before Recently seen: Clinic - Additional information Additional information: woken from sleep 3 AM with right low chest/right UQ pain , constant but waxing and waning. Partial relief with lying supine, partially exacerbated with standing and ambulating. Denies h/o similar symptoms. Went to walk-in clinic earlier today, test results pending but came to ED due to worsening pain. Review of Systems Constitutional: reports: Reviewed and negative Cardiac: reports: Chest pain / pressure. 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 - Present Medications Home Medications: Ambulatory Orders Medication Instructions Recorded Confirmed DULoxetine [Cymbalta] 60 mg PO DAILY 11/26/18 06/19/21 busPIRone [Buspar] 10 mg PO BID 11/26/18 06/19/21 Calcium Carbonate 500 mg PO TID 01/19/19 06/19/21 Cetirizine [ZyrTEC] 10 mg PO DAILY 01/19/19 06/19/21 Multivitamin [One Daily 1 each PO DAILY 01/19/19 06/19/21 Multivitamin] Omeprazole 20 mg PO DAILY 01/19/19 06/19/21 Pregabalin [Lyrica] 50 - 150 each PO TID 01/19/19 06/19/21 Propranolol [Inderal] 10 mg PO BID PRN MDD 20 mg 01/19/19 06/19/21 Atorvastatin Calcium 40 mg PO QPM 06/19/21 06/19/21 oxyCODONE [Roxicodone] 5 - 10 mg PO Q6H PRN #14 tablet 06/19/21 - Allergies Allergies/Adverse Reactions: Allergies Allergy/AdvReac Type Severity Reaction Status Date / Time latex Allergy Hives Verified 06/19/21 18:07 - Social History Does the pt smoke?: No Smoking Status: Never smoker Does the pt drink ETOH?: No Does the pt have substance abuse?: No PD ED PE NORMAL - Vitals Vital signs reviewed: Yes - General General: Alert and oriented X 3, No acute distress, Well developed/nourished - Neck Neck: Supple, no meningeal sign - Cardiac Cardiac: RRR, No murmur, No gallop, No rub - Respiratory Respiratory: No respiratory distress, Clear bilaterally - Abdomen Abdomen: Soft, Non tender - Back Back: No CVA TTP, No spinal TTP - Derm Derm: Normal color, Warm and dry, No rash - Extremities Extremities: No edema Results - Vitals Vitals: Oxygen O2 Source Room air - EKG (time done) No standard instances Rate: Rate (enter#) (84) Rhythm: NSR Ahmeek: Normal Intervals: Normal NC QRS: Normal Ischemia: Normal ST segments - Labs Labs: Laboratory Tests 06/19/21 06/19/21 06/19/21 18:31 18:31 18:31 WBC 5.2 RBC 4.61 Hgb 14.5 Hct 42.7 MCV 92.6 MCH 31.5 H MCHC 34.0 RDW 12.4 Plt Count 311 MPV 10.0 Neut # (Auto) 2.7 Lymph # (Auto) 1.8 [place]lin # (Auto) 0.6 Eos # (Auto) 0.1 Baso # (Auto) 0.0 Absolute Nucleated RBC 0.00 Nucleated RBC % 0.0 Sodium 138 Potassium 3.9 Chloride 104 Carbon Dioxide 25 Anion Gap 9.0 BUN 16 Creatinine 0.8 Estimated GFR (MDRD) 78 L Glucose 97 Calcium 9.3 Total Bilirubin 0.5 AST 39 ALT 54 Alkaline Phosphatase 64 Troponin I High Sens < 2.3 L Total Protein 7.0 Albumin 4.2 Globulin 2.8 Albumin/Globulin Ratio 1.5 Lipase 40 Urine Color Urine Clarity Urine pH Ur Specific [place] Urine Protein Urine Glucose (UA) Urine Ketones Urine Occult Blood Urine Nitrite Urine Bilirubin Urine Urobilinogen Ur Leukocyte Esterase Urine RBC Urine WBC Ur Squamous Epith Cells Urine Crystals Urine Bacteria Urine Mucus Ur Microscopic Review Urine Culture Comments 06/19/21 19:40 WBC RBC Hgb Hct MCV MCH MCHC RDW Plt Count MPV Neut # (Auto) Lymph # (Auto) [place] # (Auto) Eos # (Auto) Baso # (Auto) Absolute Nucleated RBC Nucleated RBC % Sodium Potassium Chloride Carbon Dioxide Anion Gap BUN Creatinine Estimated GFR (MDRD) Glucose Calcium Total Bilirubin AST ALT Alkaline Phosphatase Troponin I High Sens Total Protein Albumin Globulin Albumin/Globulin Ratio Lipase Urine Color DARK YELLOW Urine Clarity HAZY Urine pH 6.0 Ur Specific [place] >=1.030 H Urine Protein NEGATIVE Urine Glucose (UA) NEGATIVE Urine Ketones 15 H Urine Occult Blood NEGATIVE Urine Nitrite NEGATIVE Urine Bilirubin NEGATIVE Urine Urobilinogen 0.2 (NORMAL) Ur Leukocyte Esterase NEGATIVE Urine RBC 0-5 Urine WBC 0-3 Ur Squamous Epith Cells MANY Squamous H Urine Crystals 6-10 Calcium Oxalate Urine Bacteria Few Urine Mucus Moderate Strands Ur Microscopic Review INDICATED Urine Culture Comments NOT INDICATED - Rads (name of study) cxr Radiology: Prelim report reviewed, See rad report CT A/P Radiology: Prelim report reviewed, See rad report PD MEDICAL DECISION MAKING - ED course Complexity details: reviewed results, re-evaluated patient, considered differential, d/w patient ED course: c/o pain that is somewhat vaguely located in that she indicates left lower chest, LUQ abdomen, and left flank. As such, workup tonight includes both potential cardiac and abdominal etiology. She has unremarkable CBC, ER abdominal panel, negative hs-cTn, CXR. UA without hematuria although positive for calcium oxylate and this raises suspicion for renal colic. CT A/P does not have any diagnostic findings, including no evidence of calculi (other findings are incidental and/or noted on previous exam (left ovarian cyst, right liver lesion without change from previous study)). Symptom etiology is not apparent based on H+P and test results at this time. Results d/w patient and instructed to f/u with PMD, return precautions also reviewed I am prescribing a short course of short-acting opioid pain medication for this patient. 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 I have discussed that the opioids are for short term therapy only, and will not be refilled from the ED Departure - Departure Disposition: 01 Home, Self Care Clinical Impression: Chest pain Qualifiers: Chest pain type: unspecified Qualified Code(s): R07.9 - Chest pain, unspecified Condition: Good Instructions: ED Chest Pain Atypical Unkn Cause Follow-Up: Moira Casarez ARNP [Primary Care Provider] - Prescriptions: oxyCODONE [Roxicodone] 5 - 10 mg PO Q6H PRN #14 tablet PRN Reason: Pain Comments: The tests performed tonight do not reveal the cause of your symptoms. Contact your primary care provider to arrange for next available appointment. A prescription for pain medication (oxycodone) has been electronically submitted to [facility] pharmacy in [place]. I am prescribing a short course of narcotic pain medication for you. These are potentially dangerous and addictive medications that should be used carefully. These medications may constipate you. Take an [id number]-[id number] stool softener (docusate) twice daily with plenty of water while taking these medications. If you go 24 hours without a bowel movement, take [id number] miralax, per package instructions. Do not drink or drive while taking these medications. If you received narcotic or sedating medications while in the emergency department, do not drive for 24 hours. Store this medication in a safe, secure place and out of reach of children. It is a violation of federal law to give or sell this medication to another person or to use in a manner other than prescribed. The ED will not refill narcotic prescriptions, including prescriptions lost or stolen. To dispose of unwanted medications: 1. [facility] at [address] in [place] has a medication drop box. They accept prescription medications (in pill form) Thursday through Thursday 9:00 a.m. to 5:00 p.m. 2. [facility] [employer] accepts prescription medications (in pill form only) for disposal year round. Call for more information. 3. Contact the [facility] for the next [facility] sponsored prescription drug collection event. , [phone], or [phone]; Discharge Date/Time: 06/19/21 22:26
[2021-06-19] MEDS ORDERED: HYDROcod/ACETAM 5/325 MG TABLET PO STA (19:31)
[2021-06-19 19:49] LABS: BILIRUBIN,URINE NEGATIVE (NEGATIVE); CLARITY,URINE HAZY (CLEAR); GLUCOSE, URINE (UA) NEGATIVE (NEGATIVE); KETONES,URINE (UA) 15 mg/dL (NEGATIVE); LEUKOCYTE ESTERASE, URINE NEGATIVE (NEGATIVE); NITRITE,URINE NEGATIVE (NEGATIVE); OCCULT BLOOD,URINE NEGATIVE (NEGATIVE); PROTEIN,URINE NEGATIVE (NEGATIVE); UROBILINOGEN,URINE 0.2 (NORMAL) E.U./dL (NORMAL)
[2021-06-19 20:05] LABS: BACTERIA,URINE Few /HPF (None Seen); CRYSTALS,URINE 6-10 Calcium Oxalate /LPF; MUCUS,URINE Moderate Strands; RBC,URINE 0-5 /HPF (0-5); SQUAMOUS EPITHELIAL CELL,UR MANY Squamous (<= Few); WBC,URINE 0-3 /HPF (0-5)
--- NOTE | 2021-06-19 21:40 | CT Report ---
PROCEDURE: Abdomen/Pelvis WO INDICATIONS: right flank pain TECHNIQUE: Noncontrast 5 mm thick sections acquired from the diaphragms to the symphysis. 5 mm coronal and sagi ttal reformats were then performed. For radiation dose reduction, the following was used: automated exposure control, adjustment of mA and/or kV according to patient size. COMPARISON: CT abdomen pelvis 11/26/2018, MRI abdomen 01/18/2019. FINDINGS: Image quality: There is mild beam hardening artifact limiting evaluation. ABDOMEN: Lung bases: There is mild dependent atelectasis bilaterally. Heart size is normal. Solid organs: Within segment 6 of the right hepatic lobe, there is an oval hypodense lesion redemons trated corresponding to a cavernous hemangioma seen on the prior MRI study. The gallbladder is surgic ally absent. Spleen is normal in size. Pancreas is normal in contours. No adrenal nodules. Kidneys are normal in size, without hydronephrosis or nephrolithiasis. Peritoneum and bowel: Postsurgical changes are demonstrated along the stomach with multiple surgical sutures. Small bowel loops demonstrate normal wall thickness and caliber. No pericecal inflammatory changes to suggest appendicitis. There is moderate stool distention throughout the colon most promine nt within the cecum which may reflect constipation. No free fluid or air. Nodes and vessels: No retroperitoneal or mesenteric adenopathy by size criteria. Aorta and inferior vena cava are normal in caliber. Miscellaneous: No ventral hernias. PELVIS: Genitourinary: Bladder wall thickness is normal. There is a cyst within the left ovary measuring up to approximately 1.7 cm. Miscellaneous: No inguinal hernias or adenopathy. Bones: No suspicious bony lesions. No vertebral body compression fractures. IMPRESSION: 1. Moderate colonic stool distention most prominent within the cecum may reflect constipation. No jesus dence of bowel obstruction. 2. No pericecal inflammatory changes to suggest appendicitis. 3. No evidence of nephrolithiasis or obstructive uropathy. 4. Hypodense lesion in the right hepatic lobe demonstrated corresponding to a cavernous hemangioma ch aracterized on the prior MRI study. 5. Small left ovarian cyst is nonspecific but likely represents a follicular cyst. Reviewed by: Keith Sandhu MD on 06/19/2021 9:38 PM PDT Approved by: Keith Sandhu MD on 06/19/2021 9:38 PM PDT Station ID: [id number]
[2021-06-19] MEDS ORDERED: oxyCODONE 5 MG TABLET PO STA (22:12)
[2021-06-19 22:17] VITALS: BP 132/89
== END 2021-06-19 22:26 | disposition home or self-care (01) ==
LOC: ED 18:01
DX: R07.9 Chest pain, unspecified (principal); R10.12 Left upper quadrant pain
CPT/HCPCS: 36415; 71045; 74176; 80053; 81001; 83690; 84484; 85025; 93005; 99284; A9270; 81003; 87086

== ENCOUNTER 2021-09-11 10:55 | Outpatient (CLI) | payer OTHER ==
[2021-09-11 15:07] LABS: CHOL/HDL RATIO 3.2 (<4.4); CHOLESTEROL 142 mg/dL; HDL CHOLESTEROL 45 mg/dL; LDL CHOLESTEROL,CALCULATED 49 mg/dL; LDL/HDL RATIO 1.1 (<4.4); TRIGLYCERIDES 242 mg/dL; VLDL CHOLESTEROL 48 mg/dL
== END 2021-09-11 10:56 | disposition home or self-care (01) ==
LOC: LAB.S 10:55
PROVIDERS: ATTEND Registered Nurse
DX: E78.5 Hyperlipidemia, unspecified (principal)
CPT/HCPCS: 36415; 80061; 83721

== ENCOUNTER 2022-07-09 10:37 | Outpatient (CLI) | payer OTHER ==
[2022-07-09 14:34] LABS: BASOPHILS % (AUTO) 0.7 %; EOSINOPHILS # (AUTO) 0.1 10^3/uL (0.0-0.7); EOSINOPHILS % (AUTO) 1.6 %; HCT - HEMATOCRIT 42.3 % (37.0-47.0); LYMPHOCYTES # (AUTO) 1.7 10^3/uL (1.5-3.5); LYMPHOCYTES % (AUTO) 30.6 %; MEAN CORPUSCULAR HEMOGLOBIN 31.5 pg (27.0-31.0); MEAN CORPUSCULAR HGB CONC 33.1 g/dL (32.0-36.0); MEAN CORPUSCULAR VOLUME 95.3 fL (81.0-99.0); MEAN PLATELET VOLUME 10.2 fL (7.9-10.8); MONOCYTES # (AUTO) 0.4 10^3/uL (0.0-1.0); MONOCYTES % (AUTO) 7.7 %; NEUTROPHILS # (AUTO) 3.3 10^3/uL (1.5-6.6); NEUTROPHILS % (AUTO) 59.2 %; PLT - PLATELET COUNT 348 10^3/uL (130-450); RED BLOOD COUNT 4.44 10^6/uL (4.20-5.40); WHITE BLOOD COUNT 5.5 x10^3/uL (4.8-10.8)
[2022-07-09 15:10] LABS: ALBUMIN 3.7 g/dL (3.2-5.5); ALBUMIN/GLOBULIN RATIO 1.2 (1.0-2.2); ALKALINE PHOSPHATASE 67 IU/L (42-121); ALT ALANINE AMINOTRANSFERASE 32 IU/L (10-60); AST ASPARTATE AMINOTRANSFERASE 23 IU/L (10-42); BILIRUBIN,TOTAL 0.5 mg/dL (0.2-1.0); BUN - BLOOD UREA NITROGEN 20 mg/dL (6-20); CALCIUM 8.7 mg/dL (8.5-10.3); CARBON DIOXIDE - CO2 27 mmol/L (21-32); CHLORIDE 105 mmol/L (101-111); CHOL/HDL RATIO 2.4 (<4.4); CHOLESTEROL 160 mg/dL; CREATININE 0.9 mg/dL (0.4-1.0); GFR - MDRD 68 (>89); GLUCOSE 91 mg/dL (70-100); HDL CHOLESTEROL 67 mg/dL; LDL CHOLESTEROL,CALCULATED 61 mg/dL; LDL/HDL RATIO 0.9 (<4.4); POTASSIUM 4.1 mmol/L (3.5-5.0); SODIUM 137 mmol/L (135-145); THYROID STIMULATING HORMONE 2.49 uIU/mL (0.34-5.60); TOTAL PROTEIN 6.7 g/dL (6.7-8.2); TRIGLYCERIDES 160 mg/dL; VLDL CHOLESTEROL 32 mg/dL
== END 2022-07-09 10:38 | disposition home or self-care (01) ==
LOC: LAB.S 10:37
PROVIDERS: ATTEND Registered Nurse
DX: E78.5 Hyperlipidemia, unspecified (principal); Z79.899 Other long term (current) drug therapy; R53.83 Other fatigue; Z13.29 Encounter for screening for other suspected endocrine disorder
CPT/HCPCS: 36415; 80053; 80061; 82306; 83721; 84443; 85025

== ENCOUNTER 2022-10-29 14:58 | Outpatient (CLI) | payer OTHER | END 2022-10-29 14:59 | disposition home or self-care (01) | LOC: DI 14:58 | PROVIDERS: ATTEND Internal Medicine Cardiovascular Disease | DX: Q79.60 Ehlers-Danlos syndrome, unspecified (principal) | CPT/HCPCS: 93306 ==

== ENCOUNTER 2022-11-19 23:35 | Emergency (ER) | payer OTHER ==
[2022-11-19 23:56] LABS: BASOPHILS % (AUTO) 0.5 %; EOSINOPHILS # (AUTO) 0.2 10^3/uL (0.0-0.7); HCT - HEMATOCRIT 45.5 % (37.0-47.0); HGB - HEMOGLOBIN 14.9 g/dL (12.0-16.0); LYMPHOCYTES # (AUTO) 2.3 10^3/uL (1.5-3.5); LYMPHOCYTES % (AUTO) 26.7 %; MEAN CORPUSCULAR HEMOGLOBIN 30.9 pg (27.0-31.0); MEAN CORPUSCULAR HGB CONC 32.7 g/dL (32.0-36.0); MEAN CORPUSCULAR VOLUME 94.4 fL (81.0-99.0); MEAN PLATELET VOLUME 9.4 fL (7.9-10.8); MONOCYTES # (AUTO) 0.8 10^3/uL (0.0-1.0); MONOCYTES % (AUTO) 9.1 %; NEUTROPHILS # (AUTO) 5.2 10^3/uL (1.5-6.6); NEUTROPHILS % (AUTO) 61.5 %; PLT - PLATELET COUNT 329 10^3/uL (130-450); RED BLOOD COUNT 4.82 10^6/uL (4.20-5.40); RED CELL DISTRIBUTION WIDTH 12.5 % (12.0-15.0); WHITE BLOOD COUNT 8.5 x10^3/uL (4.8-10.8)
[2022-11-20 00:12] LABS: BILIRUBIN,URINE NEGATIVE (NEGATIVE); GLUCOSE, URINE (UA) NEGATIVE (NEGATIVE); KETONES,URINE (UA) NEGATIVE (NEGATIVE); LEUKOCYTE ESTERASE, URINE NEGATIVE (NEGATIVE); NITRITE,URINE NEGATIVE (NEGATIVE); OCCULT BLOOD,URINE NEGATIVE (NEGATIVE); PH,URINE 6.5 PH (5.0-7.5); PROTEIN,URINE NEGATIVE (NEGATIVE); UROBILINOGEN,URINE 0.2 (NORMAL) E.U./dL (NORMAL)
[2022-11-20 00:14] LABS: ALBUMIN 4.2 g/dL (3.2-5.5); ALBUMIN/GLOBULIN RATIO 1.6 (1.0-2.2); BILIRUBIN,TOTAL 0.6 mg/dL (0.2-1.0); CALCIUM 9.4 mg/dL (8.5-10.3); CREATININE 0.8 mg/dL (0.6-1.3); POTASSIUM 3.9 mmol/L (3.5-4.5); TOTAL PROTEIN 6.9 g/dL (6.4-8.9)
[2022-11-20 00:15] LABS: CLARITY,URINE CLEAR (CLEAR); HCG UR QUAL NEGATIVE
--- NOTE | 2022-11-20 02:39 | ED Physician Documentation ---
PD HPI ABD PAIN - Stated complaint Stated Complaint: ABD PX - Chief complaint Chief Complaint: Abd Pain - History obtained from History obtained from: Patient - Additional information Additional information: HPI from patient. Patient c/o RUQ pain radiating to right paralumbar region as well as around to right flank. This started yesterday without inciting event. Pain is worse with any PO intake. Nausea but no vomiting. Few episodes of mild diarrhea. PSHx includes cholecystectomy, appendectomy, gastric sleeve, right oophorectomy. Denies h/o similar symptoms. Denies fever Review of Systems Constitutional: reports: Reviewed and negative Cardiac: reports: Reviewed and negative Respiratory: reports: Reviewed and negative GI: reports: Abdominal Pain, Nausea, Diarrhea. 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 /[employer]: Oophrectomy - Present Medications Home Medications: Ambulatory Orders Medication Instructions Recorded Confirmed DULoxetine [Cymbalta] 60 mg PO DAILY 11/26/18 11/20/22 busPIRone [Buspar] 10 mg PO BID 11/26/18 11/20/22 Calcium Carbonate 500 mg PO TID 01/19/19 11/20/22 Cetirizine [ZyrTEC] 10 mg PO DAILY 01/19/19 11/20/22 Multivitamin [One Daily 1 each PO DAILY 01/19/19 11/20/22 Multivitamin] Omeprazole 20 mg PO DAILY 01/19/19 11/20/22 Pregabalin [Lyrica] 50 - 150 each PO TID 01/19/19 11/20/22 Propranolol [Inderal] 10 mg PO BID PRN MDD 20 mg 01/19/19 11/20/22 Atorvastatin Calcium 40 mg PO QPM 06/19/21 11/20/22 HYDROcod/ACETAM 5/325 [[place] 5/325] 1 - 2 tablet PO Q6H PRN #14 tablet 11/20/22 Lidocaine Viscous 2% [Xylocaine 5 - 10 ml MM Q4H PRN #100 ml 11/20/22 Viscous 2%] Sucralfate [Carafate] 1 gm PO ACHS #60 tablet 11/20/22 - Allergies Allergies/Adverse Reactions: Allergies Allergy/AdvReac Type Severity Reaction Status Date / Time latex Allergy Hives Verified 11/19/22 23:38 - Social History Does the pt smoke?: No Smoking Status: Never smoker Does the pt drink ETOH?: No Does the pt have substance abuse?: No - Immunizations Immunizations are current?: Yes - POLST Patient has POLST: No PD ED PE NORMAL - Vitals Vital signs reviewed: Yes - General General: Alert and oriented X 3, No acute distress, Well developed/nourished - HEENT HEENT: Moist mucous membranes - Neck Neck: Supple, no meningeal sign - Cardiac Cardiac: RRR, No murmur, No gallop, No rub - Respiratory Respiratory: No respiratory distress, Clear bilaterally - Abdomen Abdomen: Normal bowel sounds, Soft, Non tender, Non distended - Back Back: No CVA TTP - Derm Derm: Normal color, Warm and dry, No rash Results - Vitals Vitals: Oxygen O2 Source Room air - Labs Labs: Laboratory Tests 11/19/22 11/19/22 11/19/22 23:50 23:52 23:52 WBC 8.5 RBC 4.82 Hgb 14.9 Hct 45.5 MCV 94.4 MCH 30.9 MCHC 32.7 RDW 12.5 Plt Count 329 MPV 9.4 Neut # (Auto) 5.2 Lymph # (Auto) 2.3 [place] # (Auto) 0.8 Eos # (Auto) 0.2 Baso # (Auto) 0.0 Absolute Nucleated RBC 0.00 Nucleated RBC % 0.0 Sodium 135 Potassium 3.9 Chloride 102 Carbon Dioxide 27 Anion Gap 6.0 BUN 11 Creatinine 0.8 Estimated GFR (MDRD) 78 L Glucose 103 Calcium 9.4 Total Bilirubin 0.6 AST 20 ALT 21 Alkaline Phosphatase 78 Total Protein 6.9 Albumin 4.2 Globulin 2.7 Albumin/Globulin Ratio 1.6 Lipase 46 Urine Color YELLOW Urine Clarity CLEAR Urine pH 6.5 Ur Specific [place] 1.015 Urine Protein NEGATIVE Urine Glucose (UA) NEGATIVE Urine Ketones NEGATIVE Urine Occult Blood NEGATIVE Urine Nitrite NEGATIVE Urine Bilirubin NEGATIVE Urine Urobilinogen 0.2 (NORMAL) Ur Leukocyte Esterase NEGATIVE Ur Microscopic Review NOT INDICATED Urine Culture Comments NOT INDICATED Urine HCG, Qual NEGATIVE - Rads (name of study) CT A/P with IV contrast Relevant Findings:: Prelim report reviewed, See rad report PD Medical Decision Making - ED course Complexity details: reviewed results, re-evaluated patient, considered differential, d/w patient Departure - Departure Disposition: 01 Home, Self Care Clinical Impression: Abdominal pain Qualifiers: Abdominal location: right upper quadrant Qualified Code(s): R10.11 - Right upper quadrant pain Condition: Good Instructions: ED Abdominal Pain Female Non-Specific Abdominal Pain Follow-Up: Moira Casarez ARNP [Primary Care Provider] - Prescriptions: Sucralfate [Carafate] 1 gm PO ACHS #60 tablet HYDROcod/ACETAM 5/325 [[place] 5/325] 1 - 2 tablet PO Q6H PRN #14 tablet PRN Reason: Pain Lidocaine Viscous 2% [Xylocaine Viscous 2%] 5 - 10 ml MM Q4H PRN #100 ml PRN Reason: Abdominal Pain Comments: There were no concerning or diagnostic findings on tonight's test, including the blood test, urinalysis, and the CT scan of your abdomen and pelvis. The cause of your symptoms is not apparent at this time. As we discussed, further testing might be needed to determine why you are having the symptoms; provided the symptoms do not worsen to the point of needing to return to the emergency department, you can follow with your primary care provider for reevaluation and consideration of other testing. I have electronically submitted prescriptions for Vicodin (narcotic/opiate pain medication), viscous lidocaine (numbing agent that can help with stomach pain depending on the cause), and Carafate (medication that can help with discomfort caused by ulcers or gastritis) to the [facility] in [place]. If you use the viscous lidocaine, I would recommend that you mix it with a tab lespoon of a liquid antacid such as Maalox or liquid Tums. Forms: PCP List Discharge Date/Time: 11/20/22 06:04
[2022-11-20] MEDS ORDERED: iohexoL-300 100 ML VIAL IVP ONE (04:41)
[2022-11-20] MEDS ORDERED: HYDROcod/ACETAM 5/325 MG TABLET PO STA ×2 (04:58→05:44)
--- NOTE | 2022-11-20 08:49 | CT Report ---
PROCEDURE: ABDOMEN/PELVIS W INDICATIONS: LUQ pain, tenderness. H/o liver hemangioma CONTRAST: Omni 300 100ml TECHNIQUE: After the administration of oral and intravenous contrast, 5 mm thick sections acquired from the diap hragms to the symphysis. 5 mm thick coronal and sagittal reformats were acquired. For radiation dos e reduction, the following was used: automated exposure control, adjustment of mA and/or kV accordin g to patient size. COMPARISON: CT abdomen pelvis 06/19/2021. FINDINGS: Image quality: Excellent. Lung bases and heart: Unremarkable. Liver: Benign hemangioma in the right lobe of liver measuring 2.7 cm, (7/33), not significantly chavis ed. Gallbladder and biliary tree: Surgically absent. No biliary dilation, accounting for post-cholecystec prema state. Spleen: No splenomegaly. Pancreas: No pancreatic ductal dilation. Adrenals: No adrenal nodule. Kidneys and ureters: No hydronephrosis. No renal cystic lesion which requires follow up. No solid mas s. Bowel and peritoneum: Gastric sleeve. Stomach is not distended. No small bowel obstruction. The appen gosia is not identified. No diverticulitis. Lymph nodes: No central or retroperitoneal adenopathy. Vessels: No infrarenal aortic aneurysm. PELVIS Reproductive organs: Anteverted uterus. Possible uterine fibroids. Suspect left corpus luteum measuri ng 1.3 cm. Small left ovarian cyst measuring 1.4 cm. Trace free fluid in the right pelvis. Bladder: No abnormal wall thickening, accounting for underdistention. Pelvic lymph nodes: No pelvic adenopathy by size criteria. Bones: No aggressive osseous abnormality. Other: No significant ventral or inguinal hernia. IMPRESSION: No acute abnormality identified. Gastric sleeve. No small bowel obstruction. Benign hemangioma in the right lobe of liver measuring 2.7 cm. This report is concordant with the overnight preliminary interpretation. Reviewed by: Josue Aguiar MD on 11/20/2022 8:48 AM PDT Approved by: Josue Aguiar MD on 11/20/2022 8:48 AM PDT Station ID: [id number]
[2022-11-20 11:02] VITALS: BP 122/84; O2SAT 100
== END 2022-11-20 06:04 | disposition home or self-care (01) ==
LOC: ED 23:35
DX: R10.11 Right upper quadrant pain (principal)
CPT/HCPCS: 36415; 74177; 80053; 81003; 81025; 83690; 85025; 99283; 99284; A9270; Q9967; 81001; 87086

== ENCOUNTER 2022-11-30 11:28 | Outpatient (CLI) | payer OTHER ==
--- NOTE | 2022-11-30 15:45 | Ultrasound Report ---
PROCEDURE: Abdomen Limited INDICATIONS: RUQ ABD PAIN TECHNIQUE: Ultrasound of the abdominal right upper quadrant was obtained with image documentation. COMPARISONS: None. FINDINGS: Liver: Liver shows diffusely increased echogenicity without focal mass lesion. No intrahepatic duct al dilation. Gallbladder: Cholecystectomy Common Bile Duct: 4 mm. Pancreas: Unremarkable as visualized. Right Kidney: Appropriate in size and echotexture. No evidence of hydronephrosis. No shadowing calc cosmo. No solid or cystic mass lesion. IMPRESSION: Hepatic fatty infiltration. Cholecystectomy. Reviewed by: Wilfredo Whitfield MD on 11/30/2022 2:43 PM AKEUGENIO Approved by: Wilfredo Whitfield MD on 11/30/2022 2:43 PM AKEUGENIO Station ID: [id number]
== END 2022-11-30 11:29 | disposition home or self-care (01) ==
LOC: DI 11:28
PROVIDERS: ATTEND Nurse Practitioner
DX: R10.11 Right upper quadrant pain (principal); K76.0 Fatty (change of) liver, not elsewhere classified; Z90.49 Acquired absence of other specified parts of digestive tract